=== PATIENT | male | born 1980 | race Hispanic/Latino ===

== ENCOUNTER 2017-04-07 14:57 | Emergency (ER) | payer BC ==
--- NOTE | 2017-04-07 15:42 | RAD ---
LEFT FINGER 2 VIEWS: HISTORY: Injury. COMPARISON: None. FINDINGS: Open possibly intraarticular fracture, crush injury, of the tuft and diaphysis and proximal metaphys is of the distal phalanx of the index finger. IMPRESSION: Comminuted likely intraarticular fracture as above. POS: [facility]
[2017-04-07] MEDS ORDERED: Clindamycin/D5W 900 mg/50 ml Premix Bag ONE (17:11)
[2017-04-07] MEDS ORDERED: Morphine 2 MG/ML SYRINGE ONE ×2 (17:11→19:08)
[2017-04-07] MEDS ORDERED: Lidocaine 1% (PF) 30 ML VIAL ONE (20:59)
[2017-04-07] MEDS ORDERED: HYDROmorphone 0.5 MG/0.5 ML SYRINGE ONE (22:29)
[2017-04-07] MEDS ORDERED: Bacitracin Zinc 1 Packet ONE (23:23)
[2017-04-07] MEDS ORDERED: Ketorolac Tromethamine 30 MG/ML VIAL ONE (23:35)
== END 2017-04-07 23:40 | disposition home or self-care (01) ==
LOC: ERS 14:57
DX: S62.631B Displaced fracture of distal phalanx of left index finger, initial encounter for open fracture (principal); E11.9 Type 2 diabetes mellitus without complications; F41.9 Anxiety disorder, unspecified; F17.200 Nicotine dependence, unspecified, uncomplicated; Z79.84 Long term (current) use of oral hypoglycemic drugs; Z79.899 Other long term (current) drug therapy; W23.0XXA Caught, crushed, jammed, or pinched between moving objects, initial encounter; Y93.89 Activity, other specified
CPT/HCPCS: 12001; 96365; 96375; 96376; J1170; J1885; J2001; J2270; J3490

== ENCOUNTER 2017-04-09 09:00 | Day surgery (SDC) | payer BC ==
[2017-04-09] MEDS ORDERED: Bacitracin Zinc Ointment 30 gm TUBE ONE (19:37)
[2017-04-09] MEDS ORDERED: Betamet Acet/Betamet Na Ph 30 MG/5 ML VIAL ONE (19:37)
[2017-04-09] MEDS ORDERED: Sodium Chloride 0.9% 10 ML ONE (19:37)
[2017-04-09] MEDS ORDERED: Bupivacaine PF 0.5% 30 ML VIAL ONE (19:37)
[2017-04-09] MEDS ORDERED: Propofol 200 MG/20 ML VIAL ONE (20:00)
[2017-04-09] MEDS ORDERED: Dexamethasone 20 MG/5 ML VIAL ONE (20:00)
[2017-04-09] MEDS ORDERED: Ketorolac Tromethamine 30 MG/ML VIAL ONE ×2 (20:00→22:09)
[2017-04-09] MEDS ORDERED: Ondansetron HCl/PF 4 MG/2 ML Vial ONE (20:00)
[2017-04-09] MEDS ORDERED: Fentanyl 100 MCG/2 ML VIAL ONE (21:14)
--- NOTE | 2017-04-09 21:45 | RAD ---
THREE INTRAOPERATIVE RADIOGRAPHS SECOND DIGIT LEFT HAND: FINDINGS: AP, lateral, and oblique views demonstrate placement of transosseous wires across the comminuted fra cture distal phalanx second digit left hand. IMPRESSION: Status post stabilization of a comminuted fracture in the distal phalanx second digit left hand. POS: [facility]
--- NOTE | 2017-04-10 12:43 | OP ---
PREOPERATIVE DIAGNOSES: 1. Left index finger distal phalanx fracture. 2. Left index finger nail with aspiration. 3. Left index finger distal phalanx, ulnar side, 1.0 cm wound. POSTOPERATIVE DIAGNOSES AND FINDINGS: 1. Left index finger distal phalanx fracture. 2. Left index finger nail with aspiration. 3. Left index finger distal phalanx, ulnar side, 1.0 cm wound. 4. Frontal and sagittal plane markedly displaced, angulated and malrotated fracture, and hematoma b etween the displaced fragments. PROCEDURES PERFORMED: 1. Debridement of material associated with open fracture: The following techniques and instrumenta tions: A. Excisional technique. B. Instrumentation used: Curette, [place] blade, 11 blade knife, and tenotomy scissors. C. Irrigation with 2 liters of Pulsavac pressure with antibiotics inside, depth was the entire bone toward the fracture, also used curet. D. Findings, no gross infection, but marked malrotation and a hematoma preventing reduction adequat vickey. 2. Removal of nail. 3. Nail bed laceration. 4. A 1.0 cm wound closure. 5. Left index finger distal phalanx open fracture, open reduction and internal fixation, K-wires x2 . INDICATIONS: The patient had a very complex wound with a hematoma in the nail bed and a local proce dure that did not adequately reduce the fracture based on radiographs, so we referred the patient to the operating room today, tried to debride, and close the wound and fracture, and repaired nail bed because he had a hematoma on the nail bed with a fracture. SURGEON: Ilia Matos M.D. MAGNETIC TAPE COMPOSER OPERATOR: Dr. Bryn Kauffman, Psychology Intern. TOURNIQUET TIME: 20 minutes. DESCRIPTION OF PROCEDURE: After successful general endotracheal anesthesia, the limb prepped and dr dimitri. Timeout was done appropriately and the limb was blocked with 10 mL 0.5% Marcaine metacarpopha langeal joint level of this patient's left index finger. We immediately when lifted up the nail bed saw a hematoma trail that was in between the fractures, t hey were displaced widely about 2 to 3 mm, malrotated and in a sagittal plane angulated. For this r abram, the patient underwent debridement with all instrumentation and techniques as listed above to include curette until all the hematoma was removed. We then maximally displaced the fracture in maia ost fish-mouth technique from the frontal view and were able to remove all hematoma and potentially nonviable tissue. We then irrigated as described with 2 liters normal saline and Pulsavac pressure, antibiotics inside, reduced the fracture into near anatomic position and place and K-wires t o the primary fracture line going into the ulnar border. This was at the base of the distal phalanx condyle. Now, the fracture was anatomically stable, no pin penetrated the joint. We then complete d debridement of soft tissue, sutured the laceration on the edge with 5-0 nylon interrupted simple p attern until it was nearly anatomical, did not require any procedure on the tuft other than the lace ration on the radial ulnar aspect, the radial aspect of the tuft was debrided with a curet, closed w ith 5-0 nylon interrupted mattress pattern. Attention was now turned to the nail bed, which underwent under magnification, 6-0 Chromic repair us ing simple sutures, and then we released the tourniquet and performed eponychial fold closure. The patient then had the hemostasis obtained. Tourniquet deflated, bulky dressing was applied and t hen the middle finger splint held with [place] in neutral position and the patient left the operating room with radiographic and clinical findings with excellent position.
== END 2017-04-09 22:07 | disposition home or self-care (01) ==
LOC: SDC 09:00 → ONC 17:58 → SDC 17:58
PROVIDERS: ATTEND Orthopaedic Surgery Hand Surgery
PROC: 0PSV04Z Reposition Left Finger Phalanx with Internal Fixation Device, Open Approach (ICD-10-PCS; principal; 2017-04-09)
DX: S62.631B Displaced fracture of distal phalanx of left index finger, initial encounter for open fracture (principal); E11.9 Type 2 diabetes mellitus without complications; F41.9 Anxiety disorder, unspecified; Z79.84 Long term (current) use of oral hypoglycemic drugs; Z79.899 Other long term (current) drug therapy; Z87.891 Personal history of nicotine dependence; Z83.3 Family history of diabetes mellitus; Z82.3 Family history of stroke
CPT/HCPCS: 76001; 87070; 87102; 87205; 87206; 96374; A4216; J0702; J1100; J1885; J2405; J2704; J3010; J3370; J3490; Q4049; S0020